=== PATIENT | female | born 2000 | race African-American/Black ===

== ENCOUNTER 2019-04-05 04:14 | Emergency (ER) | payer SELFPAY | END 2019-04-05 04:33 | disposition left against medical advice (07) | LOC: ER 04:14 | DX: R51 Headache (principal); K08.89 Other specified disorders of teeth and supporting structures; Z53.21 Procedure and treatment not carried out due to patient leaving prior to being seen by health care provider ==

== ENCOUNTER 2019-04-12 11:14 | Emergency (ER) | payer MEDICAID ==
[~2019-04-12] VITALS: Ht 172.7 cm; Wt 60.0 kg
[2019-04-12 13:12] VITALS: BP 120/77
== END 2019-04-12 13:13 | disposition home or self-care (01) ==
LOC: ER 12:52
DX: K08.89 Other specified disorders of teeth and supporting structures (principal); J02.9 Acute pharyngitis, unspecified; F17.200 Nicotine dependence, unspecified, uncomplicated; Z88.1 Allergy status to other antibiotic agents
CPT/HCPCS: 99283